=== PATIENT | female | born 1935 | race Caucasian/White ===

== ENCOUNTER 2016-12-12 17:10 | Emergency (ER) | payer MEDICARE, OTHER ==
[2016-12-12 17:16] VITALS: BP 209/115
[2016-12-12] MEDS ORDERED: SODIUM CHLORIDE FLUSH 0.9% 10 ML SYRINGE IVP ONE (19:29)
== END 2016-12-12 18:05 | disposition left against medical advice (07) ==
LOC: ED 17:10
DX: R10.9 Unspecified abdominal pain (principal); Z53.21 Procedure and treatment not carried out due to patient leaving prior to being seen by health care provider

== ENCOUNTER 2019-07-31 11:50 | Inpatient (IN) | payer MEDICARE, OTHER ==
[2019-07-31] MEDS ORDERED: SODIUM CHLORIDE 0.9% 1,000 ML IV ONE ×2 (12:07→12:53)
[2019-07-31] MEDS ORDERED: PANTOPRAZOLE 40 MG VIAL IVP STA (12:18)
[2019-07-31] MEDS ORDERED: ONDANSETRON 4 MG/2 ML VIAL IVP STA (12:18)
--- NOTE | 2019-07-31 12:19 | ED Physician Documentation ---
History of Present Illness - Stated complaint Stated Complaint: VOMITING - Chief complaint Chief Complaint: Abd Pain - History obtained from History obtained from: Patient, Family - History of Present Illness Timing: How many days ago (2-3) Pain level max: 8 Pain level now: 8 - Additonal information Additional information: 84-year-old female presents to the emergency department with vomiting for the past 2 days. States that last night began vomiting dark black material. Nothing makes it better or worse. She is not on blood thinners. No fevers. No diarrhea. Has diffuse abdominal pain. Lives at home with her . Review of Systems Ten Systems: 10 systems reviewed and negative Constitutional: denies: Fever, Chills Ears: denies: Ear pain Nose: denies: Rhinorrhea / runny nose, Congestion Cardiac: denies: Chest pain / pressure Respiratory: denies: Cough GI: reports: Abdominal Pain, Nausea, Vomiting. 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 and currettage - Present Medications Home Medications: Ambulatory Orders Medication Instructions Recorded Confirmed lisinopriL [Lisinopril] 5 mg PO DAILY 12/12/16 12/12/16 - Allergies Allergies/Adverse Reactions: Allergies Allergy/AdvReac Type Severity Reaction Status Date / Time No Known Drug Allergies Allergy Verified 07/31/19 12:02 - Social History Does the pt smoke?: No Smoking Status: Never smoker PD ED PE NORMAL - Vitals Vital signs reviewed: Yes - General General: Alert and oriented X 3, No acute distress - HEENT HEENT: Moist mucous membranes - Neck Neck: Supple, no meningeal sign - Cardiac Cardiac: RRR - Respiratory Respiratory: No respiratory distress, Clear bilaterally - Abdomen Abdomen: Soft, Other (Diffusely tender to palpation. Mild distention.) - Back Back: No spinal TTP - Derm Derm: Warm and dry, No rash - Extremities Extremities: No edema - Neuro Neuro: Alert and oriented X 3 - Psych Psych: Normal mood, Normal affect Results - Vitals Vitals: Vital Signs - 24 hr 07/31/19 07/31/19 07/31/19 11:54 12:39 14:17 Temperature 37 C Heart Rate 144 H 118 H 111 H Respiratory 18 28 H 27 H Rate Blood Pressure 151/95 H 171/91 H 195/104 H O2 Saturation 92 98 100 Oxygen O2 Source Nasal cannula - EKG (time done) 1210 Rate: Rate (enter#) (125) Rhythm: Sinus tachycardia [place]: Normal Intervals: Normal SC QRS: LVH Ischemia: Normal ST segments - Labs Labs: Laboratory Tests 07/31/19 07/31/19 07/31/19 12:04 12:04 12:04 WBC 14.5 H RBC 3.97 L Hgb 9.7 L Hct 32.2 L MCV 81.1 MCH 24.4 L MCHC 30.1 L RDW 16.6 H Plt Count 477 H MPV 10.3 Neut # (Auto) 12.4 H Lymph # (Auto) 0.9 L Baxter # (Auto) 0.9 Eos # (Auto) 0.1 Baso # (Auto) 0.0 Absolute Nucleated RBC 0.00 Nucleated RBC % 0.0 PT INR APTT Sodium 134 L Potassium 3.5 Chloride 90 L Carbon Dioxide 31 Anion Gap 13.0 BUN 57 H Creatinine 1.1 H Estimated GFR (MDRD) 47 L Glucose 391 H Calcium 9.8 Total Bilirubin 0.8 AST 16 ALT 11 Alkaline Phosphatase 66 Total Protein 7.5 Albumin 3.4 Globulin 4.1 Albumin/Globulin Ratio 0.8 L Lipase 27 Urine Color Urine Clarity Urine pH Ur Specific [place] Urine Protein Urine Glucose (UA) Urine Ketones Urine Occult Blood Urine Nitrite Urine Bilirubin Urine Urobilinogen Ur Leukocyte Esterase Ur Microscopic Review Urine Culture Comments Blood Type O POSITIVE Antibody Screen NEGATIVE 07/31/19 07/31/19 12:04 13:58 WBC RBC Hgb Hct MCV MCH MCHC RDW Plt Count MPV Neut # (Auto) Lymph # (Auto) Baxter # (Auto) Eos # (Auto) Baso # (Auto) Absolute Nucleated RBC Nucleated RBC % PT 13.9 H INR 1.2 APTT 25.3 Sodium Potassium Chloride Carbon Dioxide Anion Gap BUN Creatinine Estimated GFR (MDRD) Glucose Calcium Total Bilirubin AST ALT Alkaline Phosphatase Total Protein Albumin Globulin Albumin/Globulin Ratio Lipase Urine Color LIGHT YELLOW Urine Clarity CLEAR Urine pH 7.5 Ur Specific [place] 1.010 Urine Protein 30 H Urine Glucose (UA) >=1000 H Urine Ketones NEGATIVE Urine Occult Blood TRACE-INTA Urine Nitrite NEGATIVE Urine Bilirubin NEGATIVE Urine Urobilinogen 0.2 (NORMAL) Ur Leukocyte Esterase NEGATIVE Ur Microscopic Review INDICATED Urine Culture Comments Not Reportable Blood Type Antibody Screen - Rads (name of study) CT abdomen pelvis Radiology: Prelim report reviewed, EMP read contemporaneously, See rad report (1. Findings suggesting distal small bowel obstruction with transition point in the terminal ileum near the ileocecal valve. No free fluid or free air. 2. Abnormally thickened endometrial lining measuring up to 23 mm raising suspicion for underlying endometrial mass. Recommend correlation with pelvic ultrasound. 3. Simple relatively benign appearing 2.4 cm left adnexal cyst. 4. Mild bibasilar atelectasis and small patchy airspace disease which could represent small focus of aspiration. ) PD MEDICAL DECISION MAKING - ED course Complexity details: reviewed results, re-evaluated patient, considered differential, d/w patient, d/w family, d/w data governance consultant ED course: 84-year-old female with a small bowel obstruction. She does have a history of a hernia repair approximately 2-1/2 years ago. NG tube was placed. Pain meds given. Heart rate improved. Discussed the case with Dr. Lovelace, hospitalist who will admit the patient. Also discussed with Dr. Fierro, general surgery who will evaluate the patient as well. This document was made in part using voice recognition software. While efforts are made to proofread this document, sound alike and grammatical errors may occur. Departure - Departure Disposition: 66 [facility] DC/Xfer Clinical Impression: Small bowel obstruction Hematemesis Qualifiers: Nausea presence: unspecified Qualified Code(s): K92.0 - Hematemesis Condition: Stable
[2019-07-31 12:24] LABS: BASOPHILS % (AUTO) 0.3 %; EOSINOPHILS # (AUTO) 0.1 10^3/uL (0.0-0.7); HGB - HEMOGLOBIN 9.7 g/dL (12.0-16.0); LYMPHOCYTES # (AUTO) 0.9 10^3/uL (1.5-3.5); LYMPHOCYTES % (AUTO) 5.9 %; MEAN CORPUSCULAR HEMOGLOBIN 24.4 pg (27.0-31.0); MEAN CORPUSCULAR HGB CONC 30.1 g/dL (32.0-36.0); MEAN CORPUSCULAR VOLUME 81.1 fL (81.0-99.0); MEAN PLATELET VOLUME 10.3 fL (7.9-10.8); MONOCYTES # (AUTO) 0.9 10^3/uL (0.0-1.0); MONOCYTES % (AUTO) 6.1 %; NEUTROPHILS # (AUTO) 12.4 10^3/uL (1.5-6.6); NEUTROPHILS % (AUTO) 85.7 %; PLT - PLATELET COUNT 477 10^3/uL (130-450); RED BLOOD COUNT 3.97 10^6/uL (4.20-5.40); RED CELL DISTRIBUTION WIDTH 16.6 % (12.0-15.0); WHITE BLOOD COUNT 14.5 x10^3/uL (4.8-10.8)
[2019-07-31 12:31] LABS: INR 1.2 (0.8-1.2); PT - PROTHROMBIN TIME 13.9 secs (9.9-12.6)
[2019-07-31 12:38] LABS: PARTIAL THROMBOPLASTIN TIME 25.3 secs (24.9-33.3)
[2019-07-31 12:40] LABS: ALBUMIN 3.4 g/dL (3.2-5.5); ALBUMIN/GLOBULIN RATIO 0.8 (1.0-2.2); BILIRUBIN,TOTAL 0.8 mg/dL (0.2-1.0); CALCIUM 9.8 mg/dL (8.5-10.3); CREATININE 1.1 mg/dL (0.4-1.0); TOTAL PROTEIN 7.5 g/dL (6.7-8.2)
[2019-07-31] MEDS ORDERED: IOVERSOL 320 100 ML VIAL IVP ONE ×2 (12:49→13:15)
--- NOTE | 2019-07-31 13:26 | CT Report ---
Reason: abd pain, vomiting Procedure Date: 07/31/2019 Accession Number: [id number] / [id number] Procedure: CT - Abdomen/Pelvis W CPT Code: Final Report FULL RESULT: EXAM: CT ABDOMEN AND PELVIS EXAM DATE: 07/31/2019 01:11 PM. CLINICAL HISTORY: Abdominal pain. Vomiting. COMPARISONS: None. TECHNIQUE: Routine helical CT imaging was performed through the abdomen and pelvis. IV contrast: 100 mL of Optiray 320. Enteric contrast: No. Reconstructions: Coronal and sagittal. In accordance with CT protocol optimization, one or more of the following dose reduction techniques were utilized for this exam: automated exposure control, adjustment of mA and/or KV based on patient size, or use of iterative reconstructive technique. FINDINGS: Lung Bases: Streaky and patchy lower lobe airspace disease is seen, in part due to atelectasis. Liver: Normal. No masses. Gallbladder/Bile Ducts: Unremarkable. Spleen: Scattered calcifications are seen in the spleen consistent with old granulomatous disease. No masses. Pancreas: Normal. Adrenal Glands: Normal. Kidneys: Normal. No masses or hydronephrosis. Peritoneal Cavity/Bowel: Fluid-filled distended stomach is seen. Additionally, multiple dilated small bowel loops are noted in the mid and lower abdomen region. A transition point at the terminal ileum near the ileocecal valve is suggested with fecalization of the distal small bowel contents. Some borderline wall thickening and hyperemia is seen in this area. No discrete mass or hernia. There is no free fluid or free air. Moderate sigmoid diverticulosis without diverticulitis is sitting. The appendix is well visualized and normal. Tiny fat-containing periumbilical hernia. Pelvic Organs: Heterogeneous moderately thickened endometrial lining measuring up to 23 mm is seen. There is questionable enhancement. Small 2.4 cm relatively simple appearing cyst in the left adnexa is seen. There is no free fluid. Vasculature: No acute findings. Bones: Diffuse degenerative and minor scoliotic changes of the spine is seen. Other: None. IMPRESSION: 1. Findings suggesting distal small bowel obstruction with transition point in the terminal ileum near the ileocecal valve. No free fluid or free air. 2. Abnormally thickened endometrial lining measuring up to 23 mm raising suspicion for underlying endometrial mass. Recommend correlation with pelvic ultrasound. 3. Simple relatively benign appearing 2.4 cm left adnexal cyst. 4. Mild bibasilar atelectasis and small patchy airspace disease which could represent small focus of aspiration. RADIA
[2019-07-31] MEDS ORDERED: HYDROmorphone 1 MG/ML CARPUJECT IVP STA (13:35)
[2019-07-31 14:06] LABS: BILIRUBIN,URINE NEGATIVE (NEGATIVE); GLUCOSE, URINE (UA) >=1000 mg/dL (NEGATIVE); KETONES,URINE (UA) NEGATIVE (NEGATIVE); LEUKOCYTE ESTERASE, URINE NEGATIVE (NEGATIVE); NITRITE,URINE NEGATIVE (NEGATIVE); OCCULT BLOOD,URINE TRACE-INTA (NEGATIVE); PH,URINE 7.5 PH (5.0-7.5); PROTEIN,URINE 30 mg/dL (NEGATIVE); UROBILINOGEN,URINE 0.2 (NORMAL) E.U./dL (NORMAL)
[2019-07-31 14:11] LABS: CLARITY,URINE CLEAR (CLEAR)
[2019-07-31 14:41] LABS: BACTERIA,URINE Moderate /HPF (None Seen); RBC,URINE 0-5 /HPF (0-5); SQUAMOUS EPITHELIAL CELL,UR FEW Squamous (<= Few)
--- NOTE | 2019-07-31 16:08 | HISTORY & PHYSICAL EXAMINATION ---
Chief Complaint - Chief Complaint Chief Complaint: nausea and vomiting History of Present Illness - Admitted From Admitted From:: ED - History Obtained From Records Reviewed: yes History obtained from: patient's daughter/, chart review Exam Limitations: baseline dementia - History of Present Illness HPI Comment/Other: Clarita Westfall is a 84-year old white female with a past medical history of HTN, advanced dementia, DM type 2, on Metformin, esophageal stricture, and hernia surgery about 2 years ago. The patient was brought in via private car with a primary complaint of vomiting black stuff all night, with nausea and vomiting which began Sunday morning. The patient has been feeling dizzy, weak and complaining of low abdominal pain per her . Upon arrival to the ED, an abdominal/pelvic CT showed +SBO without free air or free fluid, consistent with her symptoms. Labs show an elevated WBC count of 14.5, H/H 9.7/32.2, neut # 12.4, PT 13.9, INR 1.2, sodium 134, chloride 90, BUN 57, creatinine 1.1, GFR 47, glucose 391, with no other abnormalities. A urine sample shows acute infection with the culture pending. Vital signs show a temp of 37 C, heart rate 144, B/P 151/95, respiratory rate of 18, and 92% on room air. On exam, the patient offers no evidence of comprehension in the history leading up to this hospital stay. She is confused, restless, appears dehydrated with very dry mucous membranes, and has an NG tube in place with green bile draining. A general surgery consult was initially made and after reviewing the case, Dr. Mak will officially consult if a surgical intervention is needed. The patients family requests to stay the night as their experience is that the patient becomes more confused in hospital settings, can be impulsive, given her profound baseline dementia. The patients confirms her code status as DNR/DNI. History - Past Medical History Cardiovascular: reports: Hypertension Respiratory: reports: None Neuro: reports: Dementia, Tremors Endocrine/Autoimmune: reports: Type 2 diabetes (diagnosed ~2 years ago) GI: reports: GERD OUTDOOR ILLUMINATING ENGINEER: reports: None : reports: Incontinence (intermittent), Nocturia, Frequency HEENT: reports: Chronic vision loss, Chronic hearing loss Psych: reports: Anxiety Musculoskeletal: reports: None Derm: reports: None MRSA Hx?: No Other Past Medical History: esophageal stricture - Past Surgical History General: reports: Bowel surgery (presumed lap, for a hernia repair ~2 years ago) /OUTDOOR ILLUMINATING ENGINEER: reports: Dilation and currettage - Family & Social History Family History: Mother: , CVA/TIA, Father: , Alzheimer's Disease Living arrangement: At home Living Situation: With spouse/s.o. Social History Notes: The patient has 4 grown children who are all very close. She has been to Khoa for the past 62 years. Her and her live independently, but Khoa has leukemia with a recent poor prognosis. They have very uneventful days. The patient no longer drives. The patient's daughter denies tobacco, alcohol, or illicit drug use. The patient's confirms DNR/DNI status. - Substance History Use: Uses substance without health or social issues: NONE Abuse: Recurrent use of substance despite neg consequences: NONE Dependence: Experiences withdrawal or developed tolerances: NONE - POLST Patient has POLST: No POLST Status: DNR Meds/Allgy - Home Medications Home Medications: Ambulatory Orders Medication Instructions Recorded Confirmed lisinopriL [Lisinopril] 5 mg PO DAILY 12/12/16 12/12/16 - Allergies Allergies/Adverse Reactions: Allergies Allergy/AdvReac Type Severity Reaction Status Date / Time No Known Drug Allergies Allergy Verified 07/31/19 12:02 Review of Systems - Constitutional Constitutional: reports: Fatigue, Weakness, Poor appetite, Weight loss - Eyes Eyes: reports: Vision loss - Ears, Nose & Throat Ears, Nose & Throat: reports: Postnasal drainage, Sore throat, Hoarseness - Cardiovascular Cariovascular: reports: Decr. exercise tolerance - Respiratory Respiratory: reports: Cough, SOB with exertion - Gastrointestinal Gastrointestinal: reports: Abdominal pain, Abdominal distention, Change in bowel habits, Nausea, Vomiting, Reflux/heartburn, Bloating, Poor appetite, Other (baseline esophageal stricture) - Genitourinary Genitourinary: reports: Dysuria, Frequency, Nocturia - Musculoskeletal Musculoskeletal: reports: Stiffness, Limited range of motion, Muscle weakness - Integumentary Integumentary: reports: Dryness, Pigment changes - Neurological Neurological: reports: Headache, Memory problems, Pre-existing deficit, Abnormal gait (shuffled gait due to progressive dementia) - Psychiatric Psychiatric: reports: Anxiety - Hematologic/Lymphatic Hematologic/Lymphatic: reports: Bruising - All Other Systems All Other Systems: reports: Reviewed and negative Prior Level of Functionality: More frequent falls, no use of a cane or a walker, progressive dementia, no WANDERING per family, shuffled gait, does not drive. Lives independently with her , Khoa. No longer cooks meals or handles finances. Exam - Vital Signs Reviewed Vital Signs: Yes Vital Signs: Vital Signs x48h Temp Pulse Pulse Resp BP BP Pulse Ox 07/31/19 15:21 111 H 18 120/98 H 99 07/31/19 14:30 117 H 24 215/110 H 99 07/31/19 14:17 111 H 27 H 195/104 H 100 07/31/19 13:50 123 H 25 H 177/135 H 100 07/31/19 12:39 118 H 28 H 171/91 H 98 07/31/19 12:20 89 L 07/31/19 11:54 37 C 144 H 18 151/95 H 92 - Physical Exam General Appearance: positive: Alert, Moderate distress, Anxious, Other (restless, confused) Eyes Bilateral: positive: PERRL, No lid inflammation ENT: positive: Pharyngeal erythema, Dry mucous membranes, Other (scant fresh blood in nares from NG tube insertion) Neck: positive: Stiff neck Respiratory: positive: Chest non-tender, No respiratory distress, Other ( diminshed with scattered crackles, bilaterally) Cardiovascular: positive: Regular rate & rhythm, No gallop, Tachycardia, Systolic murmur, Decreased pulse(s) Peripheral Pulses: positive: 1+ Abdomen: positive: Tenderness, Guarding, Abnml bowel sounds (hypoactive in all quadrants, gaurding with deep palpation) Back: positive: Nml inspection Skin: positive: No rash, Warm, Dry Extremities: positive: Non-tender, Nml appearance, No pedal edema Neurologic/Psychiatric: positive: Disoriented to person, Disoriented to place, Disoriented to time, Weakness, Sensory loss, Slurred/abnml speech (few words, no evidence of comprehension), Depressed mood/affect Reflexes: Bicep (R): 2+, Bicep (L): 2+ Conclusion/Plan - Problem List (1) Small bowel obstruction Conclusion/Plan: -Abdominal/pelvis CT show distal SBO with transition point in the terminal ileum near the ileocecal valve. No free air or free fluid -General surgery consult while in the ED, consult order placed and awaiting a call back from Dr. Mak for recommendations -NG tube for decompression placed in the ED -200 mL of pure green bile immediately came out, after getting to the nursing floor, now with at least 300 mL more, no khushi blood noted -Gastro-grafin x1 ordered to be given via NG tube, then clamp for up to 4 hours, no imaging -Patient to remain NPO -Consider soft restraints due to patients baseline dementia Abdominal pain -Patient had complained of abdominal pain, low and bilateral along with her N/V while at home starting as early as Sunday AM (greater than 48 hours ago) -No masses felt, but guarding noted on exam with deep palpation -Treat with IV Tylenol given NPO Hematemesis -Description from the patients was black vomit -Anemia noted on labs with an H/H of 9.7/32.2, no prior values to compare baseline -Patients /daughter deny any recent (within the past few months) NSAID use -Ordered occult for gastric contents to be collected by RN Intractable nausea and vomiting -This began greater than 48 hours ago at home, with low abdominal pain -Continued to vomit despite treatment with anti-nausea meds -Continue to maintain NG tube, treat symptoms with IV Zofran, IV protonix -Monitor for improvement UTI -Urine sample from the ED indicates acute infection with having moderate bacteria, with a culture pending -Starting daily IV Rocephin -Offer pure wick, or consider an indwelling sims if indicated to reduce agitation Diabetes mellitus type 2 -First diagnosed after her hernia surgery ~ 2 years ago -Takes Metformin at home -Metformin will be on hold, patient is NPO -Blood sugar checks Q6H if patient tolerates Advanced dementia -Patients and daughter, Chayo, who sees her parents daily report more frequent falls, just a few days ago -Mild swallowing difficulties as the patient is reported as having a esophageal stricture -No recent choking episodes -Intermittent urinary incontinence, no stool incontinence -No wandering behaviors, or combative behaviors -Patients notes that she sleeps most of the day and gets up around 2xs at night to urinate -Short term memory loss, less speech which has become worse in the past 1.5 years - Lab Results Lab results reviewed: Yes Fish Bones: 07/31/19 12:04 07/31/19 12:04 Core Measures - Anticipated LOS I expect patient to be DC'd or transferred within 96 hours.: Yes - DVT/VTE - Prophylaxis VTE/DVT Device ordered at admit?: Yes VTE/DVT Prophylaxis med ordered at admit?: No Not Ordered - Medical Reason: Contraindicated - Stroke - Rehab Assessment Rehab services assessment to be ordered?: No Not Ordered - Medical Reason: Contraindicated - AMI - Statin at Admit Aspirin Prescribed on Admit: No Not Ordered - Medical Reason: Contraindicated
[2019-07-31] MEDS ORDERED: DIATR MEGLU/DIATRIZOATE SODIUM 120 ML BOTTLE PO SCH (16:14)
[2019-07-31] MEDS ORDERED: DIATR MEGLU/DIATRIZOATE SODIUM 120 ML BOTTLE PO ONE (16:14)
[2019-07-31] MEDS ORDERED: HALOPERIDOL 5 MG/ML VIAL IVP PRN (16:30)
[2019-07-31] MEDS: cefTRIAXone 2 GM in SODIUM CHLORIDE 0.9% MINIBAG 100 ML IV SCH (17:00)
[2019-07-31] MEDS: SODIUM CHLORIDE FLUSH 0.9% 10 ML SYRINGE IVP SCH (17:03)
[2019-07-31] MEDS: SODIUM CHLORIDE FLUSH 0.9% 10 ML SYRINGE IVP PRN ×4 (17:27→22:39)
[2019-07-31] MEDS: ONDANSETRON 4 MG/2 ML VIAL IVP PRN (17:27)
[2019-07-31] MEDS: SODIUM CHLORIDE 0.9% 1,000 ML IV SCH (18:05)
--- NOTE | 2019-07-31 20:21 | XRAY Report ---
Reason: NGT placement Procedure Date: 07/31/2019 Accession Number: [id number] / [id number] Procedure: XR - Chest for Line Placement CPT Code: Final Report FULL RESULT: EXAM: CHEST RADIOGRAPHY EXAM DATE: 07/31/2019 06:09 PM. CLINICAL HISTORY: NGT placement. COMPARISON: 12/02/2008 7:42 PM. TECHNIQUE: 1 view. FINDINGS: Lungs/Pleura: Decreased lung volumes with some compressive changes in the bases. Somewhat similar as on the prior exam. Lungs otherwise clear. No effusions or pneumothoraces. Mediastinum: Within exam limitations, the cardiomediastinal contour is normal. Other: NG tube present with the tip in the right upper quadrant, either distal stomach or proximal duodenum. Proximal sidehole is likely at least in the gastric antrum. IMPRESSION: NG tube in the stomach as above. RADIA
[2019-07-31] MEDS ORDERED: ENALAPRILAT 1.25 MG/ML VIAL IVP SCH (21:00)
[2019-07-31] MEDS: PANTOPRAZOLE 40 MG VIAL IVP SCH (21:12)
[2019-07-31] MEDS: LORazepam 2 MG/ML VIAL IVP PRN (22:38)
[2019-08-01] MEDS: ONDANSETRON 4 MG/2 ML VIAL IVP PRN (01:00)
[2019-08-01] MEDS: SODIUM CHLORIDE FLUSH 0.9% 10 ML SYRINGE IVP SCH ×2 (01:00→08:42)
[2019-08-01] MEDS: ENALAPRILAT 1.25 MG/ML VIAL IVP SCH ×2 (04:09→10:52)
[2019-08-01] MEDS: LORazepam 2 MG/ML VIAL IVP PRN (04:33)
[2019-08-01 06:03] LABS: BASOPHILS % (AUTO) 0.3 %; EOSINOPHILS # (AUTO) 0.1 10^3/uL (0.0-0.7); EOSINOPHILS % (AUTO) 0.6 %; HGB - HEMOGLOBIN 8.1 g/dL (12.0-16.0); LYMPHOCYTES # (AUTO) 0.6 10^3/uL (1.5-3.5); LYMPHOCYTES % (AUTO) 6.6 %; MEAN CORPUSCULAR VOLUME 83.3 fL (81.0-99.0); MEAN PLATELET VOLUME 9.2 fL (7.9-10.8); MONOCYTES # (AUTO) 0.9 10^3/uL (0.0-1.0); MONOCYTES % (AUTO) 10.4 %; NEUTROPHILS # (AUTO) 7.2 10^3/uL (1.5-6.6); NEUTROPHILS % (AUTO) 81.5 %; PLT - PLATELET COUNT 350 10^3/uL (130-450); RED BLOOD COUNT 3.24 10^6/uL (4.20-5.40); RED CELL DISTRIBUTION WIDTH 16.7 % (12.0-15.0); WHITE BLOOD COUNT 8.9 x10^3/uL (4.8-10.8)
[2019-08-01 06:18] LABS: ALBUMIN 2.5 g/dL (3.2-5.5); ALBUMIN/GLOBULIN RATIO 0.8 (1.0-2.2); ALKALINE PHOSPHATASE 44 IU/L (42-121); ALT ALANINE AMINOTRANSFERASE 10 IU/L (10-60); AST ASPARTATE AMINOTRANSFERASE < 10 IU/L (10-42); BILIRUBIN,TOTAL 0.5 mg/dL (0.2-1.0); BUN - BLOOD UREA NITROGEN 45 mg/dL (6-20); CALCIUM 8.4 mg/dL (8.5-10.3); CARBON DIOXIDE - CO2 30 mmol/L (21-32); CHLORIDE 107 mmol/L (101-111); CREATININE 0.8 mg/dL (0.4-1.0); GFR - MDRD 69 (>89); GLUCOSE 210 mg/dL (70-100); MAGNESIUM 2.3 mg/dL (1.7-2.8); SODIUM 143 mmol/L (135-145); TOTAL PROTEIN 5.6 g/dL (6.7-8.2)
[2019-08-01] MEDS: SODIUM CHLORIDE 0.9% 1,000 ML IV SCH (06:58)
[2019-08-01] MEDS: cefTRIAXone 2 GM in SODIUM CHLORIDE 0.9% MINIBAG 100 ML IV SCH (08:41)
[2019-08-01] MEDS: PANTOPRAZOLE 40 MG VIAL IVP SCH (08:41)
[2019-08-01] MEDS ORDERED: NS W/20 MEQ KCL 1,000 ML IV SCH (09:00)
--- NOTE | 2019-08-01 09:15 | XRAY Report ---
Reason: SBO Procedure Date: 08/01/2019 Accession Number: [id number] / [id number] Procedure: XR - Abdomen 1 View X-Ray CPT Code: 70742 Final Report FULL RESULT: EXAM: ABDOMEN RADIOGRAPHY EXAM DATE: 08/01/2019 09:05 AM. CLINICAL HISTORY: Small bowel obstruction. COMPARISON: ABDOMEN/PELVIS W/ 07/31/2019 1:04 PM. TECHNIQUE: 1 supine view. FINDINGS: Bowel Gas Pattern: There is contrast material throughout the nondilated colon. Numerous diverticuli are seen throughout the colon, including the cecum. Faint contrast is seen within prominent small bowel loops throughout the abdomen, measuring up to 4.1 cm transversely. Nasogastric tube located within nondilated stomach. Other: None. IMPRESSION: Persistent dilatation of small bowel loops, suggesting obstructive changes. Contrast within nondilated colon, with numerous diverticuli seen. RADIA
[2019-08-01] MEDS ORDERED: METOPROLOL 5 MG/5 ML VIAL IVP PRN (09:16)
[2019-08-01 12:02] LABS: GASTROCCULT POSITIVE (Negative)
--- NOTE | 2019-08-01 14:46 | Discharge Plan ---
Discharge Plan Problem Reviewed?: Yes Disposition: Home, Self Care Condition: Good Prescriptions: Ciprofloxacin [Cipro] 250 mg PO Q12H #10 tablet Oxybutynin [Oxytrol For Women] 1 each TD Q3D #30 patch.td.4 Pantoprazole [Protonix] 20 mg PO BID #30 tablet Diet: Soft Activity Restrictions: Activity as Tolerated Shower Restrictions: No Instruction Topics: Obstruction Sm Bowel Health Concerns: SBO (small bowel obstruction)- Now resolved since moving bowels and tolerating oral intake. Abdominal pain- Nearly resolved. Hematemesis- Gastric contents was sent for testing and this came back positive for blood cells. This can be explained by esophageal irritation from recurrent vomiting, or from a gastric ulcer. Intractable nausea and vomiting- Now resolved. UTI (urinary tract infection)- Urine culture is showing colonization so far, sometimes this ends up so that there is not an identifiable pathogen to treat. The sims catheter can be removed and she will continue on an oral antibiotic for the next 5 days at home. DM type 2 (diabetes mellitus, type 2)- Stable, no changes recommended. Advanced dementia- Progressive, please consider Palliative care, which needs to be ordered by the primary care provider. Plan of Treatment: Please start a proton pump inhibitor to potentially clear up any gastric ulcers if this was the possible cause of the blood found in the vomit. Please continue an antibiotic for the next 5 days at home. Please see your PCP within one week, unless not recommended in light of our COVID-19 precautions. Please see Palliative care for extra support outpatient, as this can prevent hospital stays, help with any pain issues, may help with both Clarita and Khoa in their goals of care and/or end of life plans, and will be great in the event of a time when Hospice is indicated. Care Goals: Remain safely at home for as long as possible with Khoa. Prevent a recurrence of this event. Prevent hospital stays or ED visit. Prevent infections and FALLs. Assessment: Clarita was admitted to the hospital for a small bowel obstruction that was causing repeated vomiting with nausea and low abdominal pain. A dose of gastro- grafin was given with tremendous results. A sample of gastric contents was sent to the lab showing evidence of blood. A sims catheter was placed to decompress the bladder, which may be an ongoing issue or it may be related to this infection. I suggest trying a patch to be worn every 3 days, which can greatly improve sleep and prevent urgency/frequency symptoms. After sending this patch, the pharmacy called and said this was now over the counter, so they cannot fill it. Clarita had a decrease in her red blood cells either from IV fluids (making the blood more dilute) or from her suspected bleeding from her GI tract. She will need follow up for this, but thought to be nearly resolved. Clarita is in stable condition and given her dementia will be more calm at home in her usual environment. No Smoking: If you smoke, Please STOP! Call for help. Follow-up with: aMndo Figueroa MD [Primary Care Provider] -
--- NOTE | 2019-08-01 15:22 | DISCHARGE SUMMARY ---
Discharge Summary Admit Date: 07/31/19 Discharge Date: 08/01/19 Discharging Provider: SHASHA Kern Primary Care Provider: Mando Figueroa Code Status: Do Not Attempt Resuscitation Condition at Discharge: Good Discharge Disposition: 01 Home, Self Care - DIAGNOSES Discharge Diagnoses with Status of Each Condition: SBO (small bowel obstruction)-Present on admission, resolved, patient was moving bowels, consuming meals prior to discharge Abdominal pain-Present on admission, resolved Hematemesis-Present on admission, Occult + per gastric contents, no further work up per family given progressive dementia and the potential poor outcome caused by sedatives or invasive procedures, CBC in one week, stable Intractable nausea and vomiting-Present on admission, resolved as SBO resolved UTI (urinary tract infection)-Preliminary UA showed acute infection, started on daily IV Rocephin, transitioned to Ciprofloxacin to be continued x5 more days, stable DM type 2 (diabetes mellitus, type 2)-Chronic, stable, no changes, hold Metformin until Sunday AM due to contrast given while in the ED, stable Advanced dementia-Chronic, progressive, heavily encouraged Palliative care to be ordered by PCP, stable Urinary incontinence-Chronic, sims inserted for only a few hours showing cloudy yellow urine, recommend oxybutynin patch Q3D to avoid dry mouth side effects, stable Dysuria-Chronic, stable Acute blood loss anemia-Occurred during this hospital stay, did not reach a point to have any blood transfusions, may be due to a gastric ulcer, started on PPI, stable, needs follow up CBC within one week, stable Falls-Chronic, no recent injuries noted, likely a result of progressive dementia, stable DNR-Advanced care planning discussion to review goals of care, and confirm code status, stable - HPI History of Present Illness: Clarita Westfall is a 84-year old white female with a past medical history of HTN, advanced dementia, DM type 2, on Metformin, esophageal stricture, and hernia surgery about 2 years ago. The patient was brought in via private car with a primary complaint of vomiting black stuff all night, with nausea and vomiting which began Sunday morning. The patient has been feeling dizzy, weak and complaining of low abdominal pain per her . Upon arrival to the ED, an abdominal/pelvic CT showed +SBO without free air or free fluid, consistent with her symptoms. Labs show an elevated WBC count of 14.5, H/H 9.7/32.2, neut # 12.4, PT 13.9, INR 1.2, sodium 134, chloride 90, BUN 57, creatinine 1.1, GFR 47, glucose 391, with no other abnormalities. A urine sample shows acute infection with the culture pending. Vital signs show a temp of 37 C, heart rate 144, B/P 151/95, respiratory rate of 18, and 92% on room air. On exam, the patient offers no evidence of comprehension in the history leading up to this hospital stay. She is confused, restless, appears dehydrated with very dry mucous membranes, and has an NG tube in place with green bile draining. A general surgery consult was initially made and after reviewing the case, Dr. Mak will officially consult if a surgical intervention is needed. The patients family requests to stay the night as their experience is that the patient becomes more confused in hospital settings, can be impulsive, given her profound baseline dementia. The patients confirms her code status as DNR/DNI. - HOSPITAL COURSE Hospital Course: Clarita was admitted to the hospital for a small bowel obstruction that was causing repeated vomiting with nausea and low abdominal pain. A dose of gastro- grafin was given with tremendous results. A sample of gastric contents was sent to the lab showing evidence of blood. A sims catheter was placed to decompress the bladder, which may be an ongoing issue or it may be related to this infection. A oxybutynin patch was prescribed to be worn every 3 days, which can greatly improve sleep and prevent urgency/frequency symptoms. After sending this patch, the pharmacy called and said this was now over the counter, so they canno t fill it. Clarita had a decrease in her red blood cells either from IV fluids (making the blood more dilute) or from her suspected bleeding from her GI tract. She will need follow up for this, but thought to be nearly resolved. Clarita is in stable condition and given her dementia will be more calm at home in her usual environment. - ALLERGIES Allergies/Adverse Reactions: Allergies Allergy/AdvReac Type Severity Reaction Status Date / Time No Known Drug Allergies Allergy Verified 07/31/19 12:02 - MEDICATIONS Home Medications: Ambulatory Orders Medication Instructions Recorded Confirmed lisinopriL [Lisinopril] 10 mg PO DAILY 12/12/16 08/01/19 Ciprofloxacin [Cipro] 250 mg PO Q12H #10 tablet 08/01/19 Multivitamin [Multiple Vitamins] 1 tab PO DAILY 08/01/19 08/01/19 Oxybutynin [Oxytrol For Women] 1 each TD Q3D #30 patch.td.4 08/01/19 Pantoprazole [Protonix] 20 mg PO BID #30 tablet 08/01/19 metFORMIN [Glucophage] 500 mg PO BID 08/01/19 08/01/19 - PHYSICAL EXAM AT DISCHARGE General Appearance: positive: No acute distress, Alert, Lethargic Eyes Bilateral: positive: PERRL, No lid inflammation ENT: positive: Pharyngeal erythema, Dry mucous membranes Neck: positive: No JVD, Trachea midline Respiratory: positive: Chest non-tender, No respiratory distress Cardiovascular: positive: Regular rate & rhythm, No gallop, Systolic murmur, Decreased pulse(s) Peripheral Pulses: positive: 1+ Abdomen: positive: Non-tender, Nml bowel sounds, Hepatomegaly, Other (rounded, soft) Back: positive: Nml inspection Skin: positive: No rash, Warm, Dry, Other (bronze toned, has a robertson) Extremities: positive: Non-tender, Pedal edema (dependent BLEs), Joint swelling Neurologic/Psychiatric: positive: Disoriented to place, Disoriented to time, Weakness, Sensory loss, Depressed mood/affect (flat, sleepy), Other (baseline dementia) Reflexes: Bicep (R): 3+, Bicep (L): 3+ - LABS Result Diagrams: 08/01/19 05:50 08/01/19 05:50 - FOLLOW UP Follow Up: Follow up in one week with your PCP, if appropriate given our current COVID-19 outbreak. Check CBC and electrolyte panel within one week. Patient will need a Palliative care consult as discussed with & daughter upon admission. - TIME SPENT Time Spent in Discharge (Minutes): 55
--- NOTE | 2019-08-01 15:52 | PHARMACY PROGRESS NOTE ---
- Best Possible Medication History Admit Date and Time: 07/31/19 1400 Processed by: Pharmacy Medication History completed: Yes Patient Interview: Pt unable to participate (poor historian) Secondary Source(s): Other family member (daughter), Pharmacy records ([facility] ) As the person ultimately responsible for medication therapy, providers are able to order a medication from an existing home medication list in [facility] via the "Reconcile Routine" prior to Confirmation of that medication by integrated logistics support manager. Such practice is discouraged except when the physician, in their clinical judgment, deems that a medical need exists for a medication without regard to previous use.
[2019-08-01 16:13] VITALS: BP 147/65
--- NOTE | 2019-08-01 17:22 | ADVANCE CARE PLANNING NOTE ---
Advance Care Planning - Planning Encounter Date: 08/01/19 Time: 10:00 Purpose: Introduce Palliative care and determine goals of care Parties in Attendance: The patient-Clarita Westfall, her -Khoa, her daughter-Chayo and myself-SHASHA Kern Decisional Capacity of the Patient: The patient cannot elaborate on any of her past medical history or what may have lead up to this admission. She is not decisional with the primary reason being her progressive, advanced dementia. Her and daughter are thought to have her best interest and are speaking for her. - Diagnosis for Encounter (1) Small bowel obstruction Summary: -Abdominal/pelvis CT show distal SBO with transition point in the terminal ileum near the ileocecal valve. No free air or free fluid -General surgery consult while in the ED, consult order placed and awaiting a call back from Dr. Mak for recommendations -NG tube for decompression placed in the ED -200 mL of pure green bile immediately came out, after getting to the nursing floor, now with at least 300 mL more, no khushi blood noted -Gastro-grafin x1 ordered to be given via NG tube, then clamp for up to 4 hours, no imaging -Patient to remain NPO - Encounter Subjective/Patient's Story: The patient has 4 grown children who are all very close. She has been to Khoa for the past 62 years. Her and her live independently, but Khoa has leukemia with a recent poor prognosis. They have very uneventful days, including the patient primarily sleeping much of the day away. The patient no longer drives. Khoa, the patients becomes quite tearful when speaking of the end of their life, since he does not believe that he could live without his . He thinks that his cancer is more serious than his wifes dementia and understands that he has a very poor prognosis, which is 6 months to 1 year at the most. They have been for such a long time and are not ready to NOT live independent. They find much support from one of their daughters, Chayo as she makes the effort to see them each day. He does not see his wifes falls as that detrimental, and since she has not been seriously hurt, wishes to keep things the same. It became apparent that more support may be needed in the future, but they decline extra help or alternative placement right now. Khoa wishes for the patient to not undergo surgery since her last surgery really made her confusion much worse. Even right after the surgery, while still in the hospital, the patient went through a period in which she did not recognize her loved ones, which was very frightening to Khoa and Chayo. The patient's confirms DNR/DNI status. Objective/Medical Story: Clarita Westfall is a 84-year old white female with a past medical history of HTN, advanced dementia, DM type 2, on Metformin, esophageal stricture, and hernia surgery about 2 years ago. The patient was brought in via private car with a primary complaint of vomiting black stuff all night, with nausea and vomiting which began Sunday morning. The patient has been feeling dizzy, weak and complaining of low abdominal pain per her . Upon arrival to the ED, an abdominal/pelvic CT showed +SBO without free air or free fluid, consistent with her symptoms. Labs show an elevated WBC count of 14.5, H/H 9.7/32.2, neut # 12.4, PT 13.9, INR 1.2, sodium 134, chloride 90, BUN 57, creatinine 1.1, GFR 47, glucose 391, with no other abnormalities. A urine sample shows acute infection with the culture pending. Vital signs show a temp of 37 C, heart rate 144, B/P 151/95, respiratory rate of 18, and 92% on room air. On exam, the patient offers no evidence of comprehension in the history leading up to this hospital stay. She is confused, restless, appears dehydrated with very dry mucous membranes, and has an NG tube in place with green bile draining. A general surgery consult was initially made and after reviewing the case, Dr. Mak will officially consult if a surgical intervention is needed. The patients family requests to stay the night as their experience is that the patient becomes more confused in hospital settings, can be impulsive, given her profound baseline dementia. The patients confirms her code status as DNR/DNI. An advanced care planning conversation was warranted after learning of the patient's own health issues. Goals of Care: Remain safely at home for as long as possible with Khoa. Prevent a recurrence of this event. Prevent hospital stays or ED visit. Prevent infections and FALLs. Establish a working relationship with Palliative care outpatient. Plan: Ask for an order from your PCP for a Palliative care consult for outpatient support. Look into extra home care resources to support Khoa (). Please see Palliative care for extra support outpatient, as this can prevent hospital stays, help with any pain issues, may help with both Clarita and Khoa in their goals of care and/or end of life plans, and will be great in the event of a time when Hospice is indicated. Code Status: Do Not Attempt Resuscitation Time spent on advance care plannin
== END 2019-08-01 16:30 | disposition home or self-care (01) | DRG 388 ==
LOC: ED 11:50 → MS3 14:00
PROVIDERS: ADMIT Nurse Practitioner; ATTEND Nurse Practitioner
DX: K91.30 Postprocedural intestinal obstruction, unspecified as to partial versus complete (principal); K25.4 Chronic or unspecified gastric ulcer with hemorrhage; K92.0 Hematemesis; N39.0 Urinary tract infection, site not specified; D62 Acute posthemorrhagic anemia; I10 Essential (primary) hypertension; E11.9 Type 2 diabetes mellitus without complications; F03.90 Unspecified dementia, unspecified severity, without behavioral disturbance, psychotic disturbance, mood disturbance, and anxiety; R32 Unspecified urinary incontinence; E86.0 Dehydration; K22.2 Esophageal obstruction; R25.1 Tremor, unspecified; F41.9 Anxiety disorder, unspecified; K21.9 Gastro-esophageal reflux disease without esophagitis; R26.89 Other abnormalities of gait and mobility; R35.1 Nocturia; R35.0 Frequency of micturition; H54.7 Unspecified visual loss; H91.90 Unspecified hearing loss, unspecified ear; Z66 Do not resuscitate; Z79.84 Long term (current) use of oral hypoglycemic drugs; Z79.899 Other long term (current) drug therapy; Z91.81 History of falling
CPT/HCPCS: 36415; 74018; 74177; 80053; 81001; 83605; 83690; 83735; 84100; 85025; 85610; 85730; 86850; 86900; 86901; 87077; 87086; 87181; 93005; 96374; 99285; J1170; J2060; Q9963; Q9967; 71045; 81003; 82272

== ENCOUNTER 2021-08-25 09:09 | Outpatient (CLI) | payer MEDICARE, OTHER | END 2021-08-25 09:10 | disposition E | LOC: EMS 09:09 ==